=== PATIENT | female | born 1945 | race Caucasian/White ===

== ENCOUNTER 2016-07-15 09:25 | Outpatient (CLI) | payer OTHER ==
[~2016-07-15 09:25] MED LIST: FOLIC ACID1 MG PO; PROTONIX40 MG PO; XARELTO15 MG PO
--- NOTE | 2016-07-15 11:31 | DIAGNOSTIC IMAGING REPORT ---
PROCEDURE: CT SOFT TISSUE NECK WITH CONT INDICATION: F/U LUNG CA TECHNIQUE: 63 ml of Isovue 300 injected intravenously and axial images were obtained from the skull base through the upper mediastinum with sagittal and coronal reformations. In addition, angled axial oblique images were obtained ( avoiding dental hardware). COMPARISON: CT soft tissue neck 04/04/2016 FINDINGS: Motion artifacts. There is no cervical adenopathy. There is a new 1.5 cm right supraclavicular lymph node. Atrophy versus resection of the left submandibular gland, unchanged. Parotids, right submandibular and thyroid glands are unremarkable. Normal airway. Mild atherosclerosis of the carotid bifurcations bilaterally. Moderate ethmoid and maxillary sinus disease. Mastoids are clear. Moderate degenerative changes of the spine. No suspicious osseous lesions. IMPRESSION: 1. New 1.5 cm right supraclavicular lymph node suggestive of neoplastic changes 2. Atrophy versus resection of the left submandibular gland, unchanged All CT scans at this facility use dose modulation, iterative reconstruction, and/or weight-based dosing when appropriate to reduce radiation dose to as low as reasonably achievable.
--- NOTE | 2016-07-15 12:44 | DIAGNOSTIC IMAGING REPORT ---
PROCEDURE: CT THORAX ABD PELVIS W/CONT INDICATION: F/U LUNG CA TECHNIQUE: 74 ml of Isovue 300 injected intravenously and axial images were obtained of the entire thorax, abdomen, and pelvis with sagittal and coronal reformations. COMPARISON: CTA chest/abdomen/pelvis 04/04/2016 FINDINGS: THORAX: Stable heterogeneous right perihilar soft tissue mass. Moderate improvement of alveolar infiltrates involving the right upper and right lower lobes. Stable large loculated right pleural effusion with chronic compression of the IVC. New 1.5 cm right supraclavicular lymph node. Stable small left pleural effusion and mild left basilar atelectasis. Left-sided Port-A-Cath replaced by a right-sided Port-A-Cath . Normal heart size with progression of mild left pericardial effusion. Mild coronary atherosclerosis. No suspicious osseous lesions. ABDOMEN: Multiple small calcified gallstones, unchanged. Liver, pancreas, spleen, right adrenal gland and right kidney are normal. Small left renal cyst. Stable mildly enlarged left adrenal gland with dystrophic calcifications. Moderate atherosclerosis. There is no retroperitoneal adenopathy. Stable diffuse thickening of the gastric cardia mucosa. Mild descending colon diverticulosis. PELVIS: Severe sigmoid diverticulosis. Normal appendix. Retroverted uterus, adnexa and bladder are unremarkable. No inflammatory changes, adenopathy or free fluid. Stable radiolucent lesion of the right acetabulum and sclerotic lesion of the right sacral ala. IMPRESSION: 1. Stable heterogeneous right perihilar soft tissue mass with improved extensive right upper and lower lobe pneumonitis 2. New 1.5 cm supraclavicular lymph node 3. Stable large loculated right pleural effusion with compression of the IVC. Stable small left pleural effusion. 4. Progression of mild pericardial effusion 5. Stable gastric wall thickening 6. Cholelithiasis 7. Severe sigmoid diverticulosis 8. Resolved pelvic ascites All CT scans at this facility use dose modulation, iterative reconstruction, and/or weight-based dosing when appropriate to reduce radiation dose to as low as reasonably achievable.
== END 2016-07-15 23:00 ==
LOC: CT SRH 09:25
DX: C34.90 Malignant neoplasm of unspecified part of unspecified bronchus or lung (principal); R59.9 Enlarged lymph nodes, unspecified

== ENCOUNTER 2016-10-31 10:16 | Outpatient (CLI) | payer OTHER ==
--- NOTE | 2016-10-31 14:45 | DIAGNOSTIC IMAGING REPORT ---
PROCEDURE: CT THORAX ABD PELVIS W/CONT INDICATION: STAGE 4 LUNG CA TECHNIQUE: 75 ml of Isovue 300 injected intravenously and axial images were obtained of the entire thorax, abdomen, and pelvis with sagittal and coronal reformations. COMPARISON: 07/15/2016 FINDINGS: THORAX: Stable appearance to heterogeneous right hilar mass and loculated right lower lung pleural fluid. Slight decrease in size of 1.5 cm spiculated lateral right upper lobe mass, previously 1.7 cm. Moderate patchy peripheral alveolitis posterolaterally right upper lobe, similar to slightly decreased in extent compared to the prior study. There is fluid loculated in the right major fissure. Postobstructive pneumonitis involving much of the right lower lobe. Postobstructive consolidation involving the right lower lobe, slightly less. There is new fluid loculated in the left major fissure in the upper thorax predominately. Small retrocardiac consolidation or atelectasis. Mild increase in left pleural effusion. There is a small pericardial effusion, stable. Mild coronary atherosclerosis. No new adenopathy in the chest. No suspicious osseous lesions. ABDOMEN: Multiple dependent calcified gallstones in the gallbladder fundus. There is a new right adrenal mass measuring 2.3 x 1.9 cm. Stable left adrenal gland with dystrophic calcifications. No new lesions in the liver, or kidneys. Normal pancreas and spleen. Normal caliber abdominal aorta with moderate calcific atherosclerosis. No retroperitoneal adenopathy. Stomach, bowel loops, and mesentery appear stable. Stable gastric mucosal thickening, etiology uncertain. Stable descending colon diverticulosis. PELVIS: Extensive sigmoid diverticulosis. Retroverted uterus. Normal pelvic small bowel loops and appendix. Mild atherosclerosis. No adenopathy, pelvic mass, or free fluid. 3 mm sclerotic lesion in the right sacral ala, stable. No other osseous lesions. Degeneration of the pubic symphysis. Stable cystic changes in the right acetabulum. IMPRESSION: 1. Slight interval decrease in right upper lobe spiculated mass and postobstructive pneumonitis in the right lung. 2. Stable right perihilar mass and right pleural effusion. 3. Slight interval increase in size of left pleural effusion with new fluid in the left major fissure. 4. Stable pericardial effusion. 5. New right adrenal mass suspicious for metastasis. 6. Resolution of right supraclavicular lymph node. No new adenopathy in the chest, abdomen, or pelvis. 7. 3 mm sclerotic lesion in the right sacral ala, unchanged, probably a benign bone island. All CT scans at this facility use dose modulation, iterative reconstruction, and/or weight-based dosing when appropriate to reduce radiation dose to as low as reasonably achievable.
--- NOTE | 2016-10-31 18:29 | DIAGNOSTIC IMAGING REPORT ---
PROCEDURE: CT SOFT TISSUE NECK WITH CONT INDICATION: STAGE 4 LUNG CA TECHNIQUE: 75 ml of Isovue 300 IV contrast was administered. Axial thin-slice CT images were acquired through the neck with coronal and sagittal reformations. If needed, angled axial CT images avoiding dental hardware were acquired. COMPARISON: 07/15/2016 FINDINGS: Right subclavian Mediport. Interval resection or resolution of 1.5 cm supraclavicular nodule. No significant adenopathy. No soft tissue mass. There is atrophy of the left submandibular gland, chronic. The other glandular structures appear symmetric with normal attenuation and enhancement. Mucosal surfaces are normal without tonsillar enlargement. Parapharyngeal fat planes are normally maintained. The vasculature is patent and normal caliber bilaterally. The visible portions of the sinuses and mastoids demonstrate minor lobular mucosal thickening in the right maxillary sinus. No mastoid effusions. The visible base of the brain is normal. No significant dental disease. The airway is patent. No suspicious mediastinal mass. Osseous structures demonstrate severe facet degeneration in the upper cervical spine. There is degenerative disc, endplate disease, and kyphotic curvature of the mid cervical spine. There has been interval development of extensive vasculature coursing around and into the C7, T1, and to a lesser extent T2 vertebral bodies as well as in the dorsal soft tissues Lung apices demonstrate neoplastic and treatment changes in the upper lobes bilaterally. IMPRESSION: 1. Interval resection/resolution of right supraclavicular nodule. 2. Interval development of hypervascular C7, T1 and T2 vertebral bodies. 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 Bone scan is recommended. 3. Chronic atrophy of the left submandibular gland. 4. No new soft tissue nodules.
== END 2016-10-31 23:00 ==
LOC: CT SRH 10:16
DX: C34.90 Malignant neoplasm of unspecified part of unspecified bronchus or lung (principal); J90 Pleural effusion, not elsewhere classified; E27.9 Disorder of adrenal gland, unspecified; M53.3 Sacrococcygeal disorders, not elsewhere classified

== ENCOUNTER 2017-01-06 10:39 | Outpatient (CLI) | payer OTHER ==
--- NOTE | 2017-01-06 11:36 | DIAGNOSTIC IMAGING REPORT ---
PROCEDURE: CT SOFT TISSUE NECK WITH CONT INDICATION: LUNG CA ON CHEMO TECHNIQUE: 70 ml of Isovue 300 injected intravenously and axial images were obtained from the skull base through the upper mediastinum with sagittal and coronal reformations. In addition, angled axial oblique images were obtained ( avoiding dental hardware). COMPARISON: CT soft tissue 10/31/2016. FINDINGS: Normal nasopharynx and oropharynx. There is no significant adenopathy. Normal parotid, right submandibular and thyroid glands. Chronic atrophy of the left submandibular gland. Mild atherosclerosis of the carotid bifurcations. Mild bilateral maxillary and ethmoid sinus disease. Mastoids are clear. Brain parenchyma the skull base is unremarkable. Bilateral lung apices with neoplastic and post treatment changes. Moderate to severe degenerative changes, most prominent at C5-6. Previously noted hypervascularity of the C7, T1 and T2 vertebral bodies has resolved. IMPRESSION: 1. No evidence of a soft tissue mass or adenopathy 2. Resolved hypervascularity of the C7, T1 and T2 vertebral bodies. 3. Chronic left submandibular gland atrophy All CT scans at this facility use dose modulation, iterative reconstruction, and/or weight-based dosing when appropriate to reduce radiation dose to as low as reasonably achievable.
--- NOTE | 2017-01-06 12:15 | DIAGNOSTIC IMAGING REPORT ---
PROCEDURE: CT THORAX ABD PELVIS W/CONT INDICATION: LUNG CA ON CHEMO TECHNIQUE: 75 ml of Isovue 300 injected intravenously and axial images were obtained of the entire thorax, abdomen, and pelvis with sagittal and coronal reformations. COMPARISON: CT chest/abdomen/pelvis 10/31/2016. FINDINGS: THORAX: Minimal interval progression of heterogeneous right hilar mass which may be due to increasing central necrosis. Minimal progression of postobstructive pneumonitis in the right lower lobe. Slight decrease in the size of the 1.1 cm right upper lobe mass (previously 1.5 cm). Stable patchy peripheral alveolitis in the right upper lobe posterolaterally. No change in the loculated large right pleural effusion. Slightly improved mild left pleural effusion. Improved small pericardial effusion. Mild atherosclerosis of the aorta. No suspicious osseous lesions. ABDOMEN: Multiple small gallstones without inflammatory changes. Progression of 7 x 5.8 x 5 cm right heterogeneous right adrenal mass (previously 2.3 x 1.9 cm). Stable mildly enlarged left adrenal mass with a dystrophic calcifications. Liver, pancreas, spleen and kidneys are normal. Moderate calcific atherosclerosis of the aorta. Nonspecific bowel gas pattern. Stable gastric cardia mucosal thickening. Mild degenerative changes of the spine. PELVIS: Normal appendix. Severe sigmoid diverticulosis. Retroverted uterus. Adnexa and bladder are unremarkable. No adenopathy, free fluid or inflammatory changes. Stable 3 mm sclerotic lesion of the right sacral ala. IMPRESSION: 1. Minimal interval progression of heterogeneous right hilar mass, which may be due to increasing central necrosis, with minimal progression of postobstructive right lower lobe pneumonitis 2. Slightly decreased 1.1 cm right upper lobe mass 3. Stable large loculated right pleural effusion and slightly improved mild left pleural effusion 4. Improved small pericardial effusion 5. Marked progression of heterogeneous right adrenal mass, highly suspicious for metastasis 6. Cholelithiasis 7. Severe sigmoid diverticulosis 8. Stable 3 mm sclerotic lesion of the right sacroiliac, probably a bone island. All CT scans at this facility use dose modulation, iterative reconstruction, and/or weight-based dosing when appropriate to reduce radiation dose to as low as reasonably achievable.
== END 2017-01-06 23:00 | disposition home or self-care (01) ==
LOC: CT SRH 10:39
DX: C34.90 Malignant neoplasm of unspecified part of unspecified bronchus or lung (principal); K11.0 Atrophy of salivary gland; E27.9 Disorder of adrenal gland, unspecified; K80.20 Calculus of gallbladder without cholecystitis without obstruction; K57.30 Diverticulosis of large intestine without perforation or abscess without bleeding